=== PATIENT | male | born 1945 | race Asian ===

== ENCOUNTER 2016-08-22 21:20 | Emergency (ER) | payer OTHER, MEDICARE ==
[~2016-08-22] VITALS: Ht 167.6 cm; Wt 67.0 kg
--- NOTE | 2016-08-22 21:35 | ERA ---
ER Documentation Chief Complaint Date/Time DATE: 08/22/16 TIME: 21:34 Chief Complaint Chest pain HPI The patient is a 70-year-old male, presenting to the ER because of sharp substernal chest pain radiating to the left upper extremity at about 4 PM while he was working. 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 The symptoms only lasted for seconds and resolved by itself, he denies any chest pain at this time. He denies fever, chills, neck pain, chest pain with exertion or vomiting or diaphoresis. He denies abdominal pain, vomiting, dysuria, diarrhea, constipation. He does not smoke, drinks socially Past medical history: Diabetes mellitus, hypertension, chronic kidney disease, gout Past surgical history: None ROS All systems reviewed and are negative except as per history of present illness. Medications Home Meds Reported Medications Atenolol* (Atenolol*) 25 Mg Tablet, 25 MG PO DAILY, #30 TAB 08/22/16 Fenofibrate, Micronized (Fenofibrate) 134 Mg Capsule, 134 MG PO DAILY, CAP 08/22/16 Clopidogrel Bisulfate (Clopidogrel) 75 Mg Tablet, 75 MG PO DAILY, #30 TAB 08/22/16 Amlodipine Besylate* (Norvasc*) 5 Mg Tablet, 5 MG PO DAILY, TAB 08/22/16 Sitagliptin* (Januvia*) 50 Mg Tablet, 50 MG PO QAM, #30 TAB 08/22/16 Glimepiride* (Amaryl*) 2 Mg Tablet, 2 MG PO WITH DINNER, TAB 08/22/16 Losartan Potassium* (Losartan Potassium*) 50 Mg Tablet, 50 MG PO DAILY, TAB 08/22/16 Allergies Allergies: Coded Allergies: No Known Drug Allergies (Verified Allergy, Unknown, 08/22/16) Physical Exam Vitals Vital Signs Date Time Temp Pulse Resp B/P Pulse Ox O2 Delivery O2 Flow Rate FiO2 08/22/16 22:57 98.3 80 18 129/81 97 Room Air 08/22/16 21:46 97.6 60 20 134/76 100 Physical Exam Const: No acute distress. Head: Atraumatic. Eyes: Normal Conjunctiva. ENT: Normal External Ears, Nose and Mouth. Neck: Full range of motion. No meningismus. Resp: Clear to auscultation bilaterally. Cardio: Regular rate and rhythm, no murmurs. Abd: Soft, non distended, normal bowel sounds, non tender. Skin: No petechiae or rashes. Back: No midline or flank tenderness. Ext: No cyanosis, or edema. Neur: Awake and alert. No focal deficit Psych: Normal Mood and Affect. Result Diagram: 08/22/16214508/22/162145 Results 24 hrs Laboratory Tests Test 08/22/16 21:46 Activated Partial Thromboplast Time 28.7Sec Anion Gap 15 Basophils # 0.010^3/ul Basophils % 0.6% Blood Urea Nitrogen 28mg/dl Calcium Level 9.3mg/dl Carbon Dioxide Level 28mmol/L Chloride Level 103mmol/L Creatinine 1.39mg/dl Eosinophils # 0.310^3/ul Eosinophils % 4.5% Glucose Level 118mg/dl Hematocrit 40.1% Hemoglobin 13.9g/dl INR International Normalized Ratio 0.97 Lymphocytes # 2.910^3/ul Lymphocytes % 47.5% Mean Corpuscular Hemoglobin 31.4pg Mean Corpuscular Hemoglobin Concent 34.7g/dl Mean Corpuscular Volume 90.7fl Mean Platelet Volume 9.5fl Monocytes # 0.510^3/ul Monocytes % 7.8% Neutrophils # 2.410^3/ul Neutrophils % 39.3% Nucleated Red Blood Cells # 0.010^3/ul Nucleated Red Blood Cells % 0.0/100WBC Platelet Count 48742^3/UL Potassium Level 4.2mmol/L Prothrombin Time 12.9Sec Prothrombin Time Ratio 1.0 Red Blood Count 4.4210^6/ul Red Cell Distribution Width 11.8% Sodium Level 142mmol/L Troponin I < 0.012ng/ml White Blood Count 6.210^3/ul Procedures/[facility] EKG: Read by emergency physician Rate/Rhythm: Sinus bradycardia 57 beats/min QRS, ST, T-waves: No ST elevation, no T inversion, first-degree AV block Impression: Abnormal EKG [place] [id number] Radiology Main Line: [phone] DIAGNOSTIC IMAGING REPORT Patient: SEAN SIM : 1945 Age: 70 Sex: M MR #: [id number] DOS: 08/22/162141 Ordering MD: ROBERT CASTILLO MD Location: E/R Room/Bed: PROCEDURE: XR Chest. CLINICAL INDICATION: Chest pain. TECHNIQUE: Portable AP semi erect view of the chest was obtained. COMPARISON: None. FINDINGS: The cardiomediastinal silhouette is within normal limits. The lungs are clear. There is no evidence for pleural effusion, pneumothorax or pulmonary vascular congestion. The osseous structures are intact with no evidence for acute abnormality. Faint calcification of the aortic arch is visible. RPTAT:HJJR IMPRESSION: 1.No evidence for acute intrathoracic pathology. 2. Aortic atherosclerosis is present. Physician Trang Date Time Electronically viewed and signed by Luis Enrique Sierra Physician on 08/22/2016 22:04 JR/ CC: ROBERT CASTILLO MD MEDICAL MAKING DECISION: The patient is a 70-year-old male with multiple cardiac risk factors, presenting with transient chest chest pain. He denies any chest pain at the moment. I have offered to admit him for further evaluation, however he declined. Risks, benefits, alternatives were explained to the patient. Risks include but not limited to and permanent disability. He has good follow-up with cardiology in the morning. The differential diagnoses considered include but are not limited to acute coronary syndrome, acute myocardial infarction, pericarditis, pulmonary embolism, aortic dissection, pneumonia, pleural effusion, pneumothorax, GERD, chest wall pain. Departure Diagnosis: Primary Impression: Chest pain Condition: Stable Comments I discussed the findings with the patient. 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 ROBERT CASTILLO MD Aug 22, 2016 21:35
[2016-08-22 21:46] VITALS: Ht 167.6 cm; Wt 67.0 kg
[2016-08-22] MEDS ORDERED: LOSA50TA6 PO (21:54)
[2016-08-22] MEDS ORDERED: GLIM2TAB47 PO (21:55)
[2016-08-22] MEDS ORDERED: SITA50TA2 PO (21:55)
[2016-08-22] MEDS ORDERED: AMLO5TAB4 PO (21:55)
[2016-08-22] MEDS ORDERED: CLOP75TA27 PO (21:56)
[2016-08-22] MEDS ORDERED: ATEN-51 PO (21:57)
[2016-08-22] MEDS ORDERED: FENO134C PO (21:57)
[2016-08-22 21:58] LABS: ADD SCAN DIFF NO
[2016-08-22 22:03] LABS: BASOPHILS % 0.6 % (0.0-2.0); EOSINOPHILS # 0.3 10^3/ul (0.0-0.5); EOSINOPHILS % 4.5 % (0.0-7.0); HEMATOCRIT 40.1 % (42.0-52.0); HEMOGLOBIN 13.9 g/dl (14.0-18.0); LYMPHOCYTES # 2.9 10^3/ul (0.8-2.9); LYMPHOCYTES % 47.5 % (15.0-51.0); MEAN CORPUSCULAR HEMOGLOBIN 31.4 pg (29.0-33.0); MEAN CORPUSCULAR HGB CONC 34.7 g/dl (32.0-37.0); MEAN CORPUSCULAR VOLUME 90.7 fl (82.0-101.0); MEAN PLATELET VOLUME 9.5 fl (7.4-10.4); MONOCYTE # 0.5 10^3/ul (0.3-0.9); MONOCYTES % 7.8 % (0.0-11.0); NEUTROPHIL # 2.4 10^3/ul (1.6-7.5); NEUTROPHILS % 39.3 % (39.0-77.0); PLATELET COUNT 164 10^3/UL (140-415); RED BLOOD COUNT 4.42 10^6/ul (4.70-6.10); RED CELL DISTRIBUTION WIDTH 11.8 % (11.5-14.5); WHITE BLOOD COUNT 6.2 10^3/ul (4.8-10.8)
--- NOTE | 2016-08-22 22:05 | RADRPT ---
PROCEDURE: XR Chest. CLINICAL INDICATION: Chest pain. TECHNIQUE: Portable AP semi erect view of the chest was obtained. COMPARISON: None. FINDINGS: The cardiomediastinal silhouette is within normal limits. The lungs are clear. There is no evidenc e for pleural effusion, pneumothorax or pulmonary vascular congestion. The osseous structures are i ntact with no evidence for acute abnormality. Faint calcification of the aortic arch is visible. RPTAT:HJJR IMPRESSION: 1.No evidence for acute intrathoracic pathology. 2. Aortic atherosclerosis is present. Physician Trang Date Time Electronically viewed and signed by Physician Trang on 08/22/2016 22:04 JR/
[2016-08-22 22:13] LABS: INR 0.97; PROTIME 12.9 Sec (12.2-14.2)
[2016-08-22 22:14] LABS: CHLORIDE 103 mmol/L (97-110); PARTIAL THROMBOPLASTIN TIME 28.7 Sec (25.0-35.0); POTASSIUM 4.2 mmol/L (3.5-5.1); SODIUM 142 mmol/L (135-144)
[2016-08-22 22:17] LABS: ANION GAP 15 (8-16); BLOOD UREA NITROGEN 28 mg/dl (7-20); CALCIUM 9.3 mg/dl (8.4-10.2); CARBON DIOXIDE 28 mmol/L (21-31); CREATININE 1.39 mg/dl (0.61-1.24); GLUCOSE 118 mg/dl (70-220)
[2016-08-22 22:30] LABS: TROPONIN-I < 0.012 ng/ml (0.00-0.12)
[2016-08-22 22:57] VITALS: BP 129/81; PULSE 80; RESP 18; TEMP 98.3
== END 2016-08-22 23:30 | disposition home or self-care (01) ==
LOC: E/R 21:20
DX: R07.2 Precordial pain (principal); I12.9 Hypertensive chronic kidney disease with stage 1 through stage 4 chronic kidney disease, or unspecified chronic kidney disease; N18.9 Chronic kidney disease, unspecified; E11.9 Type 2 diabetes mellitus without complications; Z79.84 Long term (current) use of oral hypoglycemic drugs
CPT/HCPCS: 36415; 71010; 80048; 84484; 85025; 85610; 85730; 93005